=== PATIENT | male | born 1945 | race Caucasian/White ===

== ENCOUNTER 2017-06-17 16:26 | Inpatient (IN) ==
[2017-06-17] MEDS ORDERED: METOCLOPRAMIDE 10mg/2ml INJECTION IVP PRN (16:52)
[2017-06-17] MEDS ORDERED: ONDANSETRON 4 MG/2 ML INJECTION IVP PRN (16:52)
[2017-06-17] MEDS ORDERED: Oxycodone/Acetaminophen 5/325 1 TAB PO PRN (16:54)
[2017-06-17] MEDS ORDERED: HYDROMORPHONE 2 MG/ML INJECTION IVP PRN (16:56)
[2017-06-17 17:00] VITALS: BMI 30.9
[2017-06-17] MEDS ORDERED: ERTAPENEM 1 G in NS 100 ML IV ONE (17:00)
[2017-06-17] MEDS: NS 1,000 ML IV SCH (17:59)
[2017-06-17] MEDS ORDERED: FALL RISK - PHARMACY CONSULT XX ONE (18:18)
[2017-06-17] MEDS: MetroNIDAZOLE PB 500 MG/100 ML BAG IV SCH (19:03)
[2017-06-17] MEDS: LAMOTRIGINE 100 MG PO SCH ×2 (20:15→22:29)
[2017-06-17] MEDS: KETOROLAC 15 MG/ML INJECTION IVP PRN (22:33)
[2017-06-18] MEDS: MetroNIDAZOLE PB 500 MG/100 ML BAG IV SCH ×3 (03:20→20:33)
[2017-06-18] MEDS: NS 1,000 ML IV SCH ×4 (05:36→20:38)
[2017-06-18] MEDS: KETOROLAC 15 MG/ML INJECTION IVP PRN ×2 (05:41→13:07)
[2017-06-18] MEDS: LAMOTRIGINE 100 MG PO SCH ×2 (08:09→21:55)
--- NOTE | 2017-06-18 10:45 | Progress Note ---
JOSE ALFREDO 06/18/2017 FINDINGS Mr. Suazo was sitting upright and reading a book upon my entering the room. He did not appear to be in acute distress. He informs me that he had a "better evening". He states that he was able to rest last evening. I was notified about 2:00 in the morning the patient "met sepsis criteria". He has remained afebrile and normotensive. He did have a slight component of some tachycardia. OBJECTIVE VITALS: Current vitals include temperature 96.8, pulse 100, respirations 22, blood pressure 125/69, SaO2 95% on room air. HEENT: Normocephalic. Pupils are equally round and react to light and accommodation. CHEST: Clear to auscultation bilaterally. HEART: Regular rate and rhythm. Normal S1, S2, without gallops, murmurs or clicks. ABDOMEN: Palpation of the abdomen today reveals some tenderness within the right upper quadrant. He however did not display any evidence for involuntary guarding or rebound tenderness. LABORATORY/RADIOGRAPHIC EVALUATION The patient had a white count last evening of 15.7. Repeat CBC from this morning is pending. The patient had a CMP last evening and his total bilirubin had increased to 5.5. On Thursday of this week when he was in the emergency room , his bilirubin was normal. Repeat CMP was obtained today and his bilirubin has went from 5.5 down to 1.9. ASSESSMENT 71-year-old gentleman with symptomatic cholelithiasis/probable acute cholecystitis with possible choledocholithiasis. PLAN Laparoscopic cholecystectomy with intraoperative cholangiogram. I informed the patient that I was concerned that he may have common bile duct stones given his elevation of his bilirubin. Given the fact that his bilirubin has decreased however, he may have "passed some common bile duct stones". I informed the patient of his options of going to [place] and having an ERCP preoperatively and "clearing his common bile duct" followed by laparoscopic cholecystectomy. I also discussed the option of staying in [place] and proceeding with laparoscopic cholecystectomy with intraoperative cholangiogram and possible transcystic/laparoscopic, common bile duct exploration. I informed the patient that if he does indeed have common bile duct stones that are not able to be cleared laparoscopically that our option would be then to convert to an open procedure or to send the patient to [place] to undergo ERCP. The patient stated that his preference would be to undergo ERCP if indeed he is found to have common bile duct stones that are not able to be cleared laparoscopically. I did spend a fair amount of time with the patient this morning discussing the above matters. I have previously discussed in detail with the patient and his what a laparoscopic cholecystectomy entailed and its associated risks which include, but was not exclusive of, bleeding, infection, potential injury to common bile duct, as well as potential conversion to open procedure. AKIRA
[2017-06-18] MEDS: ERTAPENEM 1 G in NS 100 ML IV SCH (14:08)
[2017-06-18] MEDS ORDERED: ROCURONIUM 50 MG/5 ML INJECTION IVP ONE ×3 (15:17→18:43)
[2017-06-18] MEDS ORDERED: PROPOFOL 20 ML ONE (15:17)
[2017-06-18] MEDS ORDERED: FentaNYL 250 MCG/5 ML INJECTION ONE (15:17)
[2017-06-18] MEDS: LR 1,000 ML IV SCH ×3 (15:34→19:24)
--- NOTE | 2017-06-18 15:34 | Anesthesia Preoperative Report ---
Anesthesia Preoperative Record - Date and Time Date: 06/18/17 Preoperative Diagnosis: Acute Colecistitis NPO Since Date: 06/17/17 NPO Since Time: 20:00 Allergies/Adverse Reactions: Allergies Allergy/AdvReac Type Severity Reaction Status Date / Time No Known Drug Allergies Allergy Unknown Verified 06/17/17 17:05 - Vital Signs Vital Signs: Temperature 99.1 F 06/18/17 15:25 Pulse Rate 108 H 06/18/17 15:25 Respiratory Rate 16 06/18/17 15:25 Blood Pressure 125/82 06/18/17 15:25 Pulse Oximetry 91 06/18/17 15:25 Height and Weight: Height 1.88 m Weight 111 kg Body Mass Index 30.9 - Medications Inpatient Medications: Current Medications Hydromorphone HCl (Dilaudid) 0.5 - 1.5 mg IVP Q2H PRN PRN Reason: Pain Metronidazole/Sodium Chloride (Flagyl Iv Premix) 500 mg in 100 mls @ 100 mls/ hr IV Q8H [facility] Last Infusion: 06/18/17 10:58 Dose: Infused Sodium Chloride (Normal Saline) 1,000 mls @ 125 mls/hr IV .Q8H [facility] Last Infusion: 06/18/17 14:40 Dose: 125 mls/hr Ertapenem 1 g/ Sodium Chloride 100 mls @ 200 mls/hr IV DAILY [facility] Last Infusion: 06/18/17 14:40 Dose: Infused Lactated Ringer's (Lactated Ringers) 1,000 mls @ 50 mls/hr IV .Q20H [facility] Ketorolac Tromethamine (Toradol Inj) 15 mg IVP Q6H PRN PRN Reason: Pain Last Admin: 06/18/17 13:07 Dose: 15 mg Lamotrigine (Lamictal) 100 mg PO 0900,2200 [place] Last Admin: 06/18/17 08:09 Dose: 100 mg Metoclopramide HCl (Reglan) 10 mg IVP Q6H PRN PRN Reason: Nausea Ondansetron HCl (Zofran) 4 mg IVP Q6H PRN PRN Reason: Nausea &/or vomiting Oxycodone/Acetaminophen (Percocet 5/325) 1 tab PO Q5H PRN PRN Reason: Pain Home Medications: Home Medications Medication Instructions Recorded Confirmed Type Lamotrigine [Lamictal] 100 mg PO BID 06/15/17 06/15/17 History Is Patient on Beta Giovany?: No - Medical History Respiratory: DENIES: Sleep Apnea Cardiovascular: Reports: Arrhythmia (AFIB) Gastrointestional: Reports: Gastroesophageal Reflux Disease (occasionally), Morbid Obesity Neuro/Musculoskeletal: Reports: Seizures (last episode was a little over a year ago) Other History: Reports: Anesthesia Reactions (AFTER ELBOW SURG-VOMITING) - Surgical History Musculoskeletal Surgery/Tx: Reports: Joint Surgery (REPAIR OF LEFT ELBOW 1965), Knee Arthroscopy (TENDON REPAIR) Anesthesia Reactions: Nausea and Vomiting Hx Family Anesthesia Reaction: No History of Motion Sickness: No - Social History Smoking Status: Never smoker Hx Chewing Tobacco Use: No Second Hand Exposure: No Substance Use Type: does not use Alcohol Intake Frequency: does not drink - Pertinent Findings Laboratory: CBC and BMP 06/18/17 08:49 06/18/17 02:59 BMP 06/17/17 06/18/17 17:43 02:59 Sodium 139 137 Potassium 4.4 4.0 Chloride 101 103 Carbon Dioxide 26 25 BUN 16.0 17.0 Creatinine 1.2 D 1.2 Glucose 128 H 116 H Calcium 9.3 8.6 Liver Function 06/17/17 06/18/17 Range/Units 17:43 02:59 Total Bilirubin 5.50 H 1.90 H (0.20-1.30) MG/DL AST 59 39 (17-59) U/L ALT 101 H 80 H (21-72) U/L Alkaline Phosphatase 97 D 80 (38-126) U/L Albumin 4.0 3.5 (3.5-5.0) G/DL EKG: Sinus Tachycardia - Physical Exam Respiratory Exam: Present: lungs clear Cardiovascular Exam: Present: regular rate and rhythm - Airway Assessment Mallampati Score: III TMD: 3 Fingerbreadths Neck Extension: fair Teeth: chipped teeth/crowns Overall Assessment: no airway concerns - ASA ASA Score: 2 - Plan Anesthesia: General Inhalation Gases - Discussion Discussion: Discussed risks/options/alternatives of anesthesia and questions answered. Patient consents. Nursing pain assessment noted. Present for Discussion: family member Attestation Statement: Prior to the delivery of any anesthetic medication, I examined the patient, developed the plan, obtained the patient's consent and discussed the risk and benefits of the procedure with the patient/guardian. - Additional Information Seen by Anesthesia: Yes
[2017-06-18] MEDS ORDERED: SCOPOLAMINE 1.5 MG PATCH TD ONE (15:36)
[2017-06-18] MEDS ORDERED: SUCCINYLCHOLINE 20mg/mL 10mL INJECTION ONE (15:52)
[2017-06-18] MEDS ORDERED: PHENYLEPHRINE INJ 10 MG/ML VIAL IV ONE (16:18)
[2017-06-18] MEDS ORDERED: SALINE FLUSH 10ml SYRINGE ONE (16:18)
[2017-06-18] MEDS ORDERED: ONDANSETRON 4 MG/2 ML INJECTION ONE (16:23)
[2017-06-18] MEDS ORDERED: DEXAMETHASONE 4 MG/ML INJECTION ONE (16:23)
[2017-06-18] MEDS ORDERED: IOHEXOL 300mg/ml 50ml INJECTION ONE (16:34)
[2017-06-18] MEDS ORDERED: INDOCYANINE GREEN 25mg INJECTION IVP ONE (18:18)
[2017-06-18] MEDS ORDERED: BUPIVACAINE 0.25%/EPI 1:200,000 30ml SDV INFIL ONE (18:18)
[2017-06-18] MEDS ORDERED: SALINE FLUSH 10ml SYRINGE IV ONE (18:18)
[2017-06-18] MEDS ORDERED: OMNIPAQUE 300 MG/ML OPSITE ONE (18:41)
[2017-06-18] MEDS ORDERED: NS IRR MIX OPSITE ONE (18:41)
[2017-06-18] MEDS ORDERED: NEOSTIGMINE 10 MG/10 ML INJECTION ONE (18:49)
[2017-06-18] MEDS ORDERED: GLYCOPYRROLATE 0.4 MG/2 ML INJECTION ONE (18:49)
[2017-06-18] MEDS ORDERED: HYDROMORPHONE 2 MG/ML INJECTION ONE (18:49)
--- NOTE | 2017-06-18 19:08 | General Surgery Procedure Note ---
Date of Procedure: 06/18/17 Surgeon: Paloma Prepress Technician: Christina Jiménez (oMhan Francisco APRN 2nd assist) Postoperative Diagnosis: Acute gangrenous cholecystitis cholelithiasis without obstruction Procedure: Robotic assisted laparoscopic cholecystectomy with [employer] and intraoperative cholangiogram Estimated Blood Loss: See Anesthesia Record.
--- NOTE | 2017-06-18 19:42 | Anesthesia Postoperative Note ---
- Date and Time Date: 06/18/17 Time: 19:41 - Status Patient Participated in Evaluation: Patient Participated in Person Vital Signs: Temperature 97.5 F 06/18/17 19:05 Pulse Rate 105 H 06/18/17 19:20 Respiratory Rate 18 06/18/17 19:20 Blood Pressure 126/58 06/18/17 19:20 Pulse Oximetry 93 06/18/17 19:20 Respiratory Function: Airway Patent Cardiovascular Function: Regular Pulse EKG: Sinus Rhythm Mental Status: Alert and Oriented Pain Intensity: 0 Hydration: IV Infusing Complications During Recover: None Apparent - Follow-Up Instructions Instructions: Per Surgeon
[2017-06-18] MEDS ORDERED: HYDROMORPHONE PCA 30mg/30ml VIAL IV PRN (20:31)
[2017-06-18] MEDS ORDERED: NS 1,000 ML IV SCH (20:31)
[2017-06-18] MEDS ORDERED: METOCLOPRAMIDE 10mg/2ml INJECTION IVP PRN (20:31)
[2017-06-18] MEDS ORDERED: ONDANSETRON 4 MG/2 ML INJECTION IVP PRN (20:31)
[2017-06-18] MEDS: LAMOTRIGINE 100 MG TABLET PO SCH (23:45)
[2017-06-19] MEDS: D5-1/2NS with KCL 20mEq 1,000 ML IV SCH ×2 (01:07→10:23)
[2017-06-19] MEDS: MetroNIDAZOLE PB 500 MG/100 ML BAG IV SCH ×2 (02:55→10:25)
[2017-06-19] MEDS: ERTAPENEM 1 G in NS 100 ML IV SCH (08:22)
--- NOTE | 2017-06-19 08:51 | Operative Note ---
DATE OF SERVICE 06/18/2017 SURGEON Sidney Dow MD WRECKER OPERATOR Paul Jiménez MD PREOPERATIVE DIAGNOSIS Symptomatic cholelithiasis/acute cholecystitis. POSTOPERATIVE DIAGNOSIS Acute/gangrenous cholecystitis. PROCEDURE Robotic assisted laparoscopic cholecystectomy with intraoperative cholangiogram. ANESTHESIA General endotracheal EBL AND FLUIDS Please see chart. BRIEF HISTORY/INDICATIONS Mr. Suazo is a 71-year-old gentleman whom I saw yesterday in my surgical office in the afternoon. The patient had a history of fairly significant epigastric and right upper quadrant abdominal pain. He did have a gallbladder sonogram revealing evidence for cholelithiasis with gallbladder wall thickening. The patient did not have an acute surgical abdomen and he was admitted to the hospital. Patient had been seen earlier in the week on Thursday in the emergency room. His liver function tests were normal at that time. Last evening following admission, I did notice that his bilirubin was markedly elevated at above 5. The patient was began on broad-spectrum antibiotics. The patient was reexamined this morning and his abdominal pain was improving. His bilirubin was also on a downward trend. The patient still however, had ongoing tenderness within his right upper quadrant of his abdomen and it was recommended that we therefore proceed with surgical intervention. For completeness please refer to notes included in the patient's chart. FINDINGS Upon laparoscopy, the gallbladder was found to be markedly distended. There were significant inflammatory changes surrounding the gallbladder. A portion of the gallbladder was gangrenous adjacent to the liver bed fossa. Biliary anatomy was somewhat different in its anatomy given the fact that the cystic duct actually coursed outward from the lateral aspect of the infundibulum of the gallbladder. Intraoperative cholangiogram was obtained that did reveal normal biliary anatomy without evidence for choledocholithiasis. There was a fair amount of adjacent omentum that was densely adherent to the gallbladder as a result of the marked inflammatory changes. Otherwise the small bowel, omentum and colon which were visualized were within normal limits. Lucia's capsule was smooth and without nodularities. A standard robotic assisted laparoscopic cholecystectomy was able to be completed without incident. DESCRIPTION OF PROCEDURE After informed consent was obtained, patient was brought to the operative suite , placed on the table in supine fashion. The abdomen was then prepped and draped in sterile fashion. Formal time-out was then completed. 0.25% Marcaine with epinephrine was injected just beneath the level of the umbilicus. A 2 cm curved incision was then made through the area of analgesia. Dissection was carried down to the deep subcuticular tissues and underlying fascia. Fascia was then grasped with two Mere clamps and retracted anteriorly. A 1 cm incision was then made between the two Mere clamps. Hemostat was then induced in the fascial incision and gently spread. A U-stitch was then placed with 0 Vicryl. A 12 mm camera port was then placed through the fascial opening and a pneumoperitoneum was established to a patient pressure of 15 mmHg utilizing carbon dioxide. Two 8 mm da Leonel ports were then placed within the left upper quadrant and right lower quadrant. Two 5 mm assist ports were also placed along the right lateral abdominal wall as well as along the left mid abdominal wall. The patient was placed in reverse Trendelenburg and rotated towards his left. Initially the gallbladder was not able to be visualized as a result of the marked inflammatory changes that were present. There was a fair amount of omentum encasing the gallbladder. The omentum was dissected away from the gallbladder. The gallbladder was found to be significantly distended and erythematous in nature. There were some portions of the gallbladder where the gallbladder wall appeared necrotic in nature and was "black". Given the marked distention of the gallbladder, I elected to go ahead and decompress the gallbladder. A 5 mm long needle was then advanced into the gallbladder lumen under direct visualization. This was then attached to suction. Gallbladder was then decompressed. Next, robot was then docked overlying the patient's right shoulder at a 45 degree angle. I had two assistants. One radiology assistant grasped the infundibulum of the gallbladder and retracted it in a cephalad fashion. Additional radiology assistant placed a laparoscopic Pean adjacent to the phlegmonous omentum that had been adherent to the gallbladder and gently retracted it in a caudad fashion so as to provide better visualization of the gallbladder. Dissection was began high upon the infundibulum of the gallbladder with the use of electrocautery. Mostly utilizing a suction tip da Leonel device, the gallbladder was able to be dissected away from the adjacent omentum and inflammatory tissues. The infundibulum of the gallbladder was dissected out circumferentially and to my surprise I could not visualize the cystic duct or cystic artery coursing forth from the infundibulum of the gallbladder. Dissection was then continued and there were two separate tubular structures entering into the lateral aspect of the infundibulum of the gallbladder in somewhat of a very unusual fashion. One structure appeared to be consistent with that of the cystic artery and the cystic artery was dissected out upon to the midportion of the infundibulum of the gallbladder. At this time, I had requested that Dr. Jiménez come into the operative suite for an "extra set of eyes" given this abnormal appearance of the biliary anatomy. It was concluded that the cystic duct and cystic artery indeed appeared to be in an abnormal location and were entering into the lateral aspect of the infundibulum of the gallbladder. A single hemoclip was then placed upon the cystic artery upon the midportion of the infundibulum of the gallbladder. Additional hemoclip was then just placed proximally. Cystic artery was then divided between the two Hem-o-kaleb clips. Now one could then see the cystic duct more clearly. Cystic artery was dissected away from the cystic duct. Cystic duct was then dissected out circumferentially up onto the infundibulum of the gallbladder. Posterior aspect of the infundibulum was completely freed at this time and the only remaining structure coming forth from the infundibulum of the gallbladder was that of the cystic duct. A single Hem-o- kaleb clip was then placed upon the cystic duct adjacent to the lateral aspect at the infundibulum of the gallbladder. Ductotomy was then made just proximally. Cholangiocatheter was then fed into the cystic duct and the robot was then undocked. Cholangiogram was then obtained. Under fluoroscopy, one could see a moderate length of the cystic duct before entering the common bile duct. Additionally, one could see a normal taper of the common bile duct with good flow into the duodenum. No filling defects were noted. Proximally one could see the intrahepatic radicles, left and right hepatic duct and common hepatic duct. After obtaining a normal cholangiogram, cholangiocatheter was removed. Two additional Hem-o-kaleb clips were then just placed proximally upon the cystic duct. Cystic duct was then divided between the two distal Hem-o-kaleb clips. The gallbladder was carefully and meticulously dissected off the liver bed fossa. There were marked inflammatory changes present with a considerable amount of pericholecystic edema. As one reached the fundal portion of the gallbladder, the fundal portion of the gallbladder adjacent to the liver bed fossa appeared to be gangrenous in nature. Gallbladder was eventually able to be completely dissected away from the liver. Next, the robot was then undocked. The gallbladder was then placed in a laparoscopic retrieval bag and removed from the infraumbilical port site. Camera port was then replaced. Irrigation was performed and all irrigant was suctioned till clear. Two 19- Finnish drains were then placed into the peritoneal cavity and allowed to exit out through the 5 mm port along the right lower abdominal wall as well as from the 8 mm da Leonel port within the right lower quadrant of the abdomen. One drain was placed along the lateral aspect of the liver. Second drain was placed inferior to the liver and adjacent to the gallbladder fossa. Remaining ports were removed under direct visualization. Pneumoperitoneum was released. Previously placed U-stitch was then secured imbricating the fascia. All skin incisions were then closed with joshua. Drains were secured to the right lateral abdominal wall with 2-0 Prolene. The patient is in the process of awakening from his anesthetic and will be sent back to the recovery room once deemed in stable condition. AKIRA
--- NOTE | 2017-06-19 08:59 | Remote Fluorsocopy Report ---
Indication: RA PROCEDURE: RF cholangiogram operative: Comparison: None Findings: 3 fluoroscopic spot images are submitted from an intraoperative cholangiogram. Images demonstrate injection of contrast into the cystic duct with filling of the common duct and intrahepatic biliary tree. No discrete filling defects are identified. Contrast flows into the duodenum. Impression: Intraoperative fluoroscopy as above. Please refer to the dictated operative note for further details. Fluoroscopy time is 21.9 seconds. Fluoroscopy dose is 833.5 mRad. .
[2017-06-19] MEDS ORDERED: POLYETHYL GLYCOL 3350 17gm PACKET PO SCH (09:00)
[2017-06-19] MEDS ORDERED: PANTOPRAZOLE 40 MG INJECTION IVP SCH (09:00)
[2017-06-19] MEDS ORDERED: ENOXAPARIN 40 MG/0.4 ML INJECTION SQ SCH (09:00)
[2017-06-19] MEDS: LAMOTRIGINE 100 MG TABLET PO SCH (10:23)
[2017-06-19] MEDS: KETOROLAC 15 MG/ML INJECTION IVP PRN (12:35)
--- NOTE | 2017-06-19 15:09 | Progress Note ---
DATE OF SERVICE 06/19/2017 FINDINGS Mr. Suazo this morning stated he feels significantly better. The patient states that he felt better immediately after awakening from surgery last evening. Patient states that he still notices some discomfort upon inspiration. EXAM VITAL SIGNS: Afebrile, normotensive. Please refer to EMR. CHEST: Clear to auscultation bilaterally. HEART: Regular rate and rhythm. Normal S1 and S2 without gallops, murmurs or clicks. ABDOMEN: Palpation of the abdomen reveals some minimal incisional tenderness. There is no evidence for guarding or rebound. LABORATORY/RADIOGRAPHIC EVALUATION The patient's white count is now down to 8.3. Hemoglobin is stable at 12.3. CMP was obtained and his bilirubin is now back to normal at 0.7 from a high of 5.5. ASSESSMENT 71-year-old gentleman status post robotic-assisted laparoscopic cholecystectomy secondary to gangrenous cholecystitis. Patient currently doing well. PLAN Transfer to floor. [place]. Encourage deep breathing, coughing, and incentive spirometry. The patient likely has a component of some atelectasis involving right lower lobe given his degree of inflammatory changes present below the level of the diaphragm and his history of "splinting" over the last several days. Will reassess the patient this evening. May discharge to home on additional oral antibiotics or perhaps keep the patient in hospital overnight and discharge tomorrow. I am pleased with the patient's progress at this time. AKIRA
[2017-06-19 16:57] VITALS: BP 103/62; PULSE 75; RESP 16; TEMP 97.9; O2SAT 93
--- NOTE | 2017-06-19 17:51 | Discharge Summary ---
Discharge Information Date of admission: 06/18/17 20:31 Anticipated date of discharge: 06/19/17 Attending Physician: Sidney Dow MD Primary care physician: Aren Quiroz MD - Discharge Diagnosis (1) Cholelithiasis and acute cholecystitis without obstruction Status: Acute - Procedures Procedures: DATE OF SERVICE 06/18/2017 SURGEON Sidney Dow MD CABLE TOWER OPERATOR Paul Jiménez MD PREOPERATIVE DIAGNOSIS Symptomatic cholelithiasis/acute cholecystitis. POSTOPERATIVE DIAGNOSIS Acute/gangrenous cholecystitis. PROCEDURE Robotic assisted laparoscopic cholecystectomy with intraoperative cholangiogram. - Laboratory Labs: 06/19/17 04:38 06/19/17 04:38 Laboratory Tests 06/17/17 06/18/17 06/19/17 17:43 02:59 04:38 Total Bilirubin 5.50 H 1.90 H 0.70 AST 59 48 ALT 101 H 69 Lipase < 10 L Laboratory Tests 06/17/17 06/18/17 06/19/17 19:35 08:49 04:38 WBC 15.7 H D 13.1 H 8.3 - Microbiology Microbiology 06/18/17 03:08 Peripheral/Iv Start Blood Culture - Preliminary No Growth After 1 Day 06/18/17 02:59 Peripheral/Iv Start Blood Culture - Preliminary No Growth After 1 Day History of Present Illness HPI: 06/17/2017 BRIEF HISTORY/INDICATIONS Mr. Suazo is a 71-year-old gentleman whom I saw yesterday in my surgical office in the afternoon. The patient had a history of fairly significant epigastric and right upper quadrant abdominal pain. He did have a gallbladder sonogram revealing evidence for cholelithiasis with gallbladder wall thickening. The patient did not have an acute surgical abdomen and he was admitted to the hospital. Patient had been seen earlier in the week on Thursday in the emergency room. His liver function tests were normal at that time. Last evening following admission, I did notice that his bilirubin was markedly elevated at above 5. The patient was began on broad-spectrum antibiotics. The patient was reexamined this morning and his abdominal pain was improving. His bilirubin was also on a downward trend. The patient still however, had ongoing tenderness within his right upper quadrant of his abdomen and it was recommended that we therefore proceed with surgical intervention. 06/19/17 17:47 Hospital Course This is a general summary of the patient's hospital course. For more details refer to the complete medical record. Hospital course: 06/18/17 Robotic assisted cholecystectomy. A very gangrenous gallbladder, difficult surgery. Transferred to CCU post op for close monitoring. 06/19/17 POD #1 PLAN VSS, he did well over night. Transfer to floor. [place] Floyd. Encourage deep breathing, coughing, and incentive spirometry. The patient likely has a component of some atelectasis involving right lower lobe given his degree of inflammatory changes present below the level of the diaphragm and his history of "splinting" over the last several days. Will reassess the patient this evening. UPDATE 5PM Discharge to home on additional oral antibiotics tonight. He will follow up in the office on Thursday for drain removal. I am pleased with the patient's progress at this time. Time spent with patient: 25 - 35 minutes DVT Prophylaxis: SCD's, Lovenox GI Prophylaxis: Protonix Discharge Plan - Med Rec/Dispo Referrals/Follow Up: Marlene Francisco APRN [Advanced Practice Nurse] - 06/23/17 9:45 am (for drain removal. Lito will come out in about 2 weeks.) Prescriptions: New Amoxicillin/Potassium Clav [Augmentin 875-125 Tablet] 1 each PO BID 7 Days # 14 tab Oxycodone/Acetaminophen 5/325 [Percocet 5/325] 1 tab PO Q5H PRN #25 tab PRN Reason: Pain PEG 3350 17gm PACKET [Miralax] 17 gm PO DAILY packet Continue Hydrocodone/APAP 5/325 [Dana 5/325] 1 - 2 tab PO Q4H PRN #60 tab PRN Reason: Pain Lamotrigine [Lamictal] 100 mg PO BID Aspirin *EC* [Ecotrin] 81 mg PO DAILY #42 tab Ondansetron [Zofran Odt] 1 tab PO Q6HR PRN #15 tab PRN Reason: Nausea Discontinued Ciprofloxacin HCl [Cipro] 500 mg PO BID #14 tab MetroNIDAZOLE [Flagyl] 500 mg PO BID #14 tab - Disposition 01 Discharged Home, Self-Care - Dismissal Complete Discharge Instructions are:: Complete
[2017-06-21] MEDS ORDERED: SCOPOLAMINE PATCH REMOVAL TD ONE (15:50)
== END 2017-06-19 19:10 | disposition home or self-care (01) | DRG 419 ==
LOC: SUR 16:26 → SRG 16:29 → CCU 06-18 20:11 → SRG 06-19 16:00
PROVIDERS: ADMIT Surgery; ATTEND Surgery